=== PATIENT | female | born 1985 | race Caucasian/White ===

== ENCOUNTER 2022-03-15 19:00 | Inpatient (IN) | payer BC ==
[2022-03-15] MEDS: ELECTROLYTE-148 SOLN 1,000 ML IV SCH (20:00)
[2022-03-15] MEDS ORDERED: DINOPROSTONE 10 MG VAGINAL SUPPOSITORY VG ONE (20:27)
[2022-03-15 21:13] VITALS: BMI 45.2
[2022-03-16] MEDS ORDERED: OXYTOCIN 30 UNITS in 0.9% NS 30 UNIT/500 ML INFUS.BAG IVPB SCH (10:45)
[2022-03-16] MEDS ORDERED: OXYTOCIN 30 UNITS in 0.9% NS 30 UNIT/500 ML INFUS.BAG IVPB ONE (11:47)
[2022-03-16] MEDS ORDERED: ONDANSETRON 4 MG/2 ML VIAL IVPUSH PRN (20:28)
[2022-03-16] MEDS ORDERED: IBUPROFEN 600 MG TABLET (FP) PO PRN (20:28)
[2022-03-16] MEDS ORDERED: morphine SULFATE/PF 1 MG/2 ML (2cc Syringe - QUVA) EP ONE (20:28)
[2022-03-16] MEDS ORDERED: ACETAMINOPHEN 325 MG TABLET (FP) PO PRN ×2 (20:28→22:17)
[2022-03-16] MEDS ORDERED: ceFAZolin SODIUM 1 GM VIAL ONE (20:34)
[2022-03-16] MEDS ORDERED: morphine SULFATE (PF) 1 MG/2 ML SYRINGE ONE (20:34)
[2022-03-16] MEDS ORDERED: SODIUM CHLORIDE 0.9% P/F 10 ML VIAL IJ ONE (20:34)
[2022-03-16] MEDS ORDERED: PHENYLEPHRINE HCL 10 MG/1 ML SINGLE DOSE VIAL ONE (20:46)
[2022-03-16] MEDS ORDERED: OXYTOCIN 10 UNITS/ML VIAL ONE ×3 (21:03→21:25)
[2022-03-16] MEDS ORDERED: KETOROLAC TROMETHAMINE 30 MG/1 ML VIAL ONE (22:08)
[2022-03-16] MEDS ORDERED: ONDANSETRON 4 MG/2 ML VIAL ONE (22:08)
[2022-03-16 22:12] LABS: CORD BASE EXCESS -2.7 mmol/L (0-2); CORD PCO2 43.2 mmHg (30-78); CORD pH 7.344 (7.14-7.44)
[2022-03-16 22:14] LABS: CORD HCO3 23.1 mmHg (20-29); CORD PCO2 48.7 mmHg (30-78); CORD pH 7.294 (7.14-7.44)
[2022-03-16] MEDS ORDERED: FENTANYL CITRATE/PF 50 MCG/ML VIAL ONE (22:16)
[2022-03-16] MEDS ORDERED: IBUPROFEN 800 MG/8 ML IJ IVPB PRN (22:17)
[2022-03-16] MEDS ORDERED: WITCH HAZEL 50% (TUCKS) 40 PAD/JAR PAD TP PRN (22:17)
[2022-03-16] MEDS ORDERED: BENZOCAINE 20% 57 GM BOTTLE TP PRN (22:17)
[2022-03-16] MEDS ORDERED: METHYLERGONOVINE MALEATE 0.2 MG/1 ML AMP IM PRN (22:17)
[2022-03-16] MEDS ORDERED: BENZOCAINE 28 GM HEMORRHOIDAL OINTMENT TP PRN (22:17)
[2022-03-16] MEDS ORDERED: CEFAZOLIN SODIUM 2 GM in DEXTROSE 5%-WATER 100 ML IVPB SCH (22:30)
[2022-03-16] MEDS ORDERED: ceFAZolin 2 GRAM PREMIX BAG IVPB SCH (22:30)
[2022-03-16] MEDS ORDERED: CITRIC ACID/SODIUM CITRATE 30 ML UNIT-DOSE CUP PO ONE (23:00)
[2022-03-16] MEDS ORDERED: OXYTOCIN 20 UNITS in 0.9% NS 20 UNIT/1,000 ML INFUS.BAG IV ONE (23:16)
[2022-03-16] MEDS: OXYTOCIN 20 UNITS in 0.9% NS 20 UNIT/1,000 ML INFUS.BAG IV SCH (23:18)
[2022-03-16] MEDS: CEFAZOLIN SODIUM 2 GM in DEXTROSE 5%-WATER 100 ML IVPB SCH (23:35)
[2022-03-17] MEDS: CEFAZOLIN SODIUM 2 GM in DEXTROSE 5%-WATER 100 ML IVPB SCH ×2 (05:11→11:52)
[2022-03-17] MEDS: ENOXAPARIN NA (PORCINE) 40 MG/0.4 ML DISP.SYRIN SQ SCH (09:10)
[2022-03-17] MEDS: PRENATAL VITAMINS W/ FOLIC ACID TABLET (FP) PO SCH (09:10)
[2022-03-17 09:18] LABS: BASO % 0.2 % (0-2.0); EOS % 0.2 % (0-4.5); HEMATOCRIT 29.9 % (32.4-45.2); HEMOGLOBIN 10.2 GM/dL (10.7-15.3); LYMPH % 13.6 % (8-40); MCH 29.9 pg (25.7-33.7); MCHC 34.1 g/dl (32.0-36.0); MEAN CELL VOLUME 87.8 fl (80-96); MONO % 6.5 % (3.8-10.2); NEUT % 79.5 % (42.8-82.8); PLATELET COUNT 193 10^3/uL (134-434); RDW 14.5 % (11.6-15.6); WHITE BLOOD COUNT 11.7 K/mm3 (4.0-10.0)
[2022-03-17] MEDS: OXYTOCIN 20 UNITS in 0.9% NS 20 UNIT/1,000 ML INFUS.BAG IV SCH (09:20)
[2022-03-17] MEDS ORDERED: oxyCODONE HCL 5 MG TABLET PO PRN ×2 (10:17)
[2022-03-17] MEDS: IBUPROFEN 600 MG TABLET (FP) PO PRN ×2 (15:13→20:02)
[2022-03-17] MEDS: SIMETHICONE 80 MG TAB.CHEW (FP) PO PRN (20:01)
[2022-03-17] MEDS: SENNOSIDES/DOCUSATE COMBO (SENNA PLUS) TABLET (UD) PO PRN (20:01)
[2022-03-17] MEDS ORDERED: BISACODYL 10 MG SUPP.RECT RC PRN (22:17)
[2022-03-18] MEDS: IBUPROFEN 600 MG TABLET (FP) PO PRN ×2 (06:56→16:29)
[2022-03-18] MEDS: PRENATAL VITAMINS W/ FOLIC ACID TABLET (FP) PO SCH (09:04)
[2022-03-18] MEDS: ENOXAPARIN NA (PORCINE) 40 MG/0.4 ML DISP.SYRIN SQ SCH (09:04)
[2022-03-18] MEDS: ELECTROLYTE-148 SOLN 500 ML IV SCH ×5 (20:47→23:02)
[2022-03-18] MEDS: ELECTROLYTE-148 SOLN 1,000 ML IV SCH ×2 (20:47→21:07)
[2022-03-18] MEDS: OXYTOCIN 20 UNITS in 0.9% NS 20 UNIT/1,000 ML INFUS.BAG IV SCH (20:48)
[2022-03-18] MEDS: SIMETHICONE 80 MG TAB.CHEW (FP) PO PRN (22:00)
[2022-03-18] MEDS: SENNOSIDES/DOCUSATE COMBO (SENNA PLUS) TABLET (UD) PO PRN (22:00)
[2022-03-19] MEDS: SIMETHICONE 80 MG TAB.CHEW (FP) PO PRN (07:59)
[2022-03-19] MEDS: IBUPROFEN 600 MG TABLET (FP) PO PRN (07:59)
[2022-03-19 08:17] LABS: BASO % 0.1 % (0-2.0); HEMATOCRIT 29.4 % (32.4-45.2); MCH 29.8 pg (25.7-33.7); MCHC 34.1 g/dl (32.0-36.0); MEAN CELL VOLUME 87.3 fl (80-96); MEAN PLT VOLUME 7.6 fl (7.5-11.1); MONO % 8.4 % (3.8-10.2); NEUT % 77.5 % (42.8-82.8); PLATELET COUNT 225 10^3/uL (134-434); RBC 3.37 M/mm3 (3.60-5.2); RDW 14.7 % (11.6-15.6); WHITE BLOOD COUNT 9.4 K/mm3 (4.0-10.0)
[2022-03-19] MEDS: PRENATAL VITAMINS W/ FOLIC ACID TABLET (FP) PO SCH (09:57)
[2022-03-19] MEDS: ENOXAPARIN NA (PORCINE) 40 MG/0.4 ML DISP.SYRIN SQ SCH (09:57)
[2022-03-19 10:13] VITALS: BP 100/64; PULSE 109; RESP 18; TEMP 97.7
== END 2022-03-19 11:54 | disposition home or self-care (01) | DRG 788 ==
LOC: JLDR 19:00 → J3W 03-16 23:27
PROVIDERS: ADMIT Obstetrics & Gynecology; ATTEND Obstetrics & Gynecology
PROC: 10D00Z1 Extraction of Products of Conception, Low, Open Approach (ICD-10-PCS; principal; 2022-03-16)
DX: O61.0 Failed medical induction of labor (principal); O99.214 Obesity complicating childbirth; O34.13 Maternal care for benign tumor of corpus uteri, third trimester; D25.9 Leiomyoma of uterus, unspecified; Z3A.39 39 weeks gestation of pregnancy; Z37.0 Single live birth
CPT/HCPCS: 36415; 36600; 82803; 85025; 88307-TC